=== PATIENT | male | born 1995 | race African-American/Black ===

== ENCOUNTER 2016-06-20 12:30 | Emergency (ER) ==
--- NOTE | 2016-06-20 13:23 | PROVIDER DOCUMENTATION ---
HPI-Musculoskeletal Pain/Inj - GENERAL Source: patient, family - HX OF PRESENT ILLNESS-MUSKULOSKELTAL Quality of Pain: reports: none Severity in ED: mild Onset/Duration: just prior to arrival Timing: still present Any recent injury?: No Locality of Occurance: Home Similar Symptoms Previously?: No Recently seen or treated by another doctor?: No - UPPER EXTREMITY PAIN/INJURY Extremities Pain Location: hand: bilateral Context / Method of Injury: reports: other (pt was hitting the pavement) <Kayla Jonas - Last Filed: 06/20/16 14:00> <Thierry Cruz - Last Filed: 06/20/16 14:04> - GENERAL Chief Complaint: Extremity Injury Stated Complaint: LEFT HAND INJURY Time Seen by Provider: 06/20/16 13:21 - HX OF PRESENT ILLNESS-MUSKULOSKELTAL Nature of Presenting Problem: pt is a 21 y/o m present to the Er with complaints of hitting his fist on the concrete. he was overwhelmed about his grandfather. pt family at bedside. pt denies taken any current medications. (Kayla Jonas) Review of Systems - Adult - REVIEW OF SYSTEMS - ADULT Constitutional: reports: no symptoms reported Eyes: reports: no symptoms reported Ears, Nose, Mouth & Throat: reports: no symptoms reported Cardiovascular: reports: no symptoms reported Respiratory: reports: no symptoms reported Gastrointestinal: reports: no symptoms reported Genitourinary: reports: no symptoms reported Musculoskeletal: reports: other (bilateral hands scuffed and scars). denies: muscle weakness, neck pain Integumentary: denies: hives, hair loss, itching Neurological: denies: ataxia, dizziness/vertigo, headache/migraines Psychiatric: reports: no symptoms reported Endocrine: reports: no symptoms reported Hematologic/Lymphatic: reports: no symptoms reported Allergic/Immunologic: reports: no symptoms reported All Other Systems: Reviewed and Negative <Kayla Jonas - Last Filed: 06/20/16 14:00> Past History - Adult - PAST MEDICAL HISTORY-ADULT Review of Records: reports: Nursing Assessment Review - IMMUNIZATION STATUS Childhood Immunizations: See Nurse Assessment Flu Vaccine: See Nurse Assessment - SOCIAL HISTORY Smoking: denies Substance Use: none/never Alcohol Use Frequency: never <Kayla Jonas - Last Filed: 06/20/16 14:00> Physical Exam-Injury Related - Physical Exam-Injury Related Initial Vital Signs Reviewed: Yes General Appearance: appears well, alert, no apparent distress Eyes: PERRL/EOMI, pink conjunctivae Head, Ears, Nose, Mouth & Throat: moist mucous membranes Neck: non-tender, full range of motion Respiratory: chest non-tender, lungs clear Cardiovascular: normal peripheral pulses, regular rate, rhythm Abdominal Exam: normal bowel sounds, non tender, soft Extremity: normal range of motion, normal gait, tenderness (TTP Bilateral hands and nuckles), other (Bilateral MCP scuffed). negative: no pedal edema, no calf tenderness Integumentary: normal color, warm/dry Neurologic: grossly normal, no motor/sensory deficits Psych/Mental Status: normal mood/affect, normal thought content, normal thought process, oriented x 3 - Glascow Coma Score Best Eye Response ([place]): (4) open spontaneously Best Verbal Response ([place]): (5) oriented Best Motor Response ([place]): (6) obeys commands [place] Total: 15 <Kayla Jonas - Last Filed: 06/20/16 14:00> Progress - XRAY 1 XRAY: Right XRAY Study: Hand Impression: Abnormal XRAY Interpretation: boutonniere deformity of pinky 2 XRAY: Left XRAY Study: Hand Impression: Normal XRAY Interpretation: NAD <Kayla Jonas - Last Filed: 06/20/16 14:00> <Thierry Cruz - Last Filed: 06/20/16 14:04> - PLAN OF CARE/RESULTS Progress/Plan/Lab Results: Vital Signs - 24 hr 06/20/16 13:09 Temperature 98.3 F Pulse Rate 62 Respiratory 14 Rate Blood Pressure 143/84 O2 Sat by Pulse 100 Oximetry Orders Category Date Time Status Wound Care DIRECTED Care 06/20/16 13:34 Active HAND COMPLETE LEFT [RAD] Stat Exams 06/20/16 13:33 Ordered HAND COMPLETE RIGHT [RAD] Stat Exams 06/20/16 13:33 Ordered Vital Signs - 24 hr 06/20/16 13:09 Temperature 98.3 F Pulse Rate 62 Respiratory 14 Rate Blood Pressure 143/84 O2 Sat by Pulse 100 Oximetry (Kayla Jonas) Departure <Kayla Jonas - Last Filed: 06/20/16 14:00> - Departure Time of Disposition Order: 14:02 Certified Medical Emergency: Emergent <Thierry Cruz - Last Filed: 06/20/16 14:04> - Departure DIAGNOSIS: Boutonniere deformity of finger of right hand Abrasion hand Qualifiers: Encounter type: initial encounter Laterality: right Qualified Code(s): S60.511A - Abrasion of right hand, initial encounter Disposition: HOME 01 Condition: Stable Additional Instructions: ED Follow Up Instructions: You have been treated by a care provider in the Emergency Department. These instructions are being provided to you so you can have an understanding of how to care for yourself upon discharge. Upon discharge from the Emergency Department, you are responsible for making arrangements for follow-up care by a physician of your choice. Take all prescribed medications as directed. Return to the Emergency Department immediately for any new or worsening symptoms. You may call the Physician Referral phone number at [phone] to obtain a list of Physicians who are taking new patients. Prescriptions: Mupirocin Ointment [Bactroban Ointment] 1 applicatn TOP TID #1 tube Ibuprofen [Motrin] 800 mg PO Q8H PRN PRN #20 tablet PRN Reason: inflammation Omeprazole [Prilosec] 20 mg PO DAILY@0700 #20 capsule Referrals: Angela Hale MD [Primary Care Provider] - Attestation - Scribe Verification/Attestation Scribe:: Kayla Jonas Acting as Scribe for:: Thierry Cruz Scribe documention review:: This chart was documented by a scribe and accurately reflects the service the provider performed and the decisions made by the provider. <Kayla Jonas - Last Filed: 06/20/16 14:00> - Physician/ JOAQUIN Attestation Patient care was provided by Advanced Practice Provider:: Yes Advanced Practice Provider:: Thierry Cruz Advanced Practice Provider documentation review:: The Mid-level provider documentation, treatment plan and medical decision making was reviewed by the physician who agrees with all treatment and medical decision making by the [facility]. <Thierry Cruz - Last Filed: 06/20/16 14:04> Physician Attestation - Physician Attestation I, the provider, attest to the following statement:: Thierry Cruz Physician documentation Attestation:: This documentation recorded by the scribe accurately reflects the service I personally performed and the decisions made by me. <Thierry Cruz - Last Filed: 06/20/16 14:04>
--- NOTE | 2016-06-20 14:24 | Diag Imaging Result Document ---
PROCEDURE NAME: HAND COMPLETE LEFT - 06/20/2016 LEFT HAND 3 VIEWS: COMPARISON: None. FINDINGS: Bones are intact and normally aligned. Joint spaces and soft tissues are clear. IMPRESSION: Negative exam.
--- NOTE | 2016-06-20 14:26 | Diag Imaging Result Document ---
PROCEDURE NAME: HAND COMPLETE RIGHT - 06/20/2016 RIGHT HAND 3 VIEWS: COMPARISON: None. FINDINGS: There is no fracture visible. There appears to be boutonniere deformity of the right pinky finger. This is age indeterminate. IMPRESSION: Age-indeterminate deformity of the pinky finger which may represent a ligamentous injury.
[2016-06-20 14:31] VITALS: BP 130/80
== END 2016-06-20 14:27 | disposition home or self-care (01) ==
LOC: ED 12:30
DX: S60.511A Abrasion of right hand, initial encounter (principal); M21.831 Other specified acquired deformities of right forearm; M79.642 Pain in left hand; M79.641 Pain in right hand; W22.09XA Striking against other stationary object, initial encounter